=== PATIENT | female | born 1985 | race Caucasian/White ===

== ENCOUNTER 2016-10-17 07:39 | Emergency (ER) | payer MEDICAID ==
[~2016-10-17] VITALS: Ht 157.5 cm; Wt 67.0 kg
[~2016-10-17 07:39] MED LIST: ALBU8I INH; IBUP600 PO; LEVO.05 PO; OXYC1SOL5 PO
[2016-10-17 07:41] VITALS: BP 134/93; PULSE 76; RESP 15; TEMP 98.5; O2SAT 99
[2016-10-17] MEDS ORDERED: LEVO75TA3 PO (07:59)
[2016-10-17] MEDS ORDERED: RANI150T PO (07:59)
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
[2016-10-17] MEDS ORDERED: ACETAMINOPHEN/HYDROcodone 325 MG/5 MG TAB PO ONE (08:45)
[2016-10-17] MEDS ORDERED: IBUPROFEN 600 MG TAB PO ONE (08:45)
[2016-10-17] MEDS ORDERED: CYCLOBENZAPRINE HCL 10 MG TAB PO ONE (08:45)
--- NOTE | 2016-10-17 09:31 | RADRPT ---
EXAM DATE/TIME: 10/17/2016 09:17 [facility] COMPARISON: FOOT RIGHT COMPLETE ([id number]), October 17, 2016, 9:14. INDICATIONS : Neck pain from strain at work yesterday. MEDICAL HISTORY : None. SURGICAL HISTORY : None. ENCOUNTER: Initial ACUITY: 1 day PAIN SCORE: 9/10 LOCATION: Cervical spine. FINDINGS: Five view examination was performed. There is normal alignment and curvature of the vertebral bodies down to the level of C7. No evidence of fracture or subluxation. Vertebral body height is normal. The disc spaces are maintained. The prevertebral soft tissues are of normal thickness. The atlanto -axial articulation is intact. The bony neural foramen are patent bilaterally. CONCLUSION: 1. No acute bony abnormality identified. Canelo Chowdhury MD on October 17, 2016 at 9:27 Board Certified Radiologist. This report was verified electronically.
--- NOTE | 2016-10-17 09:32 | RADRPT ---
EXAM DATE/TIME: 10/17/2016 09:14 [facility] COMPARISON: No previous studies available for comparison. INDICATIONS : Right foot pain; fall at work yesterday. MEDICAL HISTORY : None. SURGICAL HISTORY : None. ENCOUNTER: Initial ACUITY: 1 day PAIN SCORE: 9/10 LOCATION: Right foot. FINDINGS: There is mild bunion deformity of the metatarsal phalangeal joint of the first digit. There are mild associated arthritic changes. The osseous structures are otherwise intact. No acute fracture is seen. CONCLUSION: Mild bunion deformity and secondary degenerative changes. No acute fracture is identified. Canelo Chowdhury MD on October 17, 2016 at 9:29 Board Certified Radiologist. This report was verified electronically.
[2016-10-17] MEDS ORDERED: IBUP-232 PO (09:54)
[2016-10-17] MEDS ORDERED: CYCL5TAB PO (09:59)
== END 2016-10-17 10:14 | disposition home or self-care (01) ==
LOC: NEPE 07:39
DX: S16.1XXA Strain of muscle, fascia and tendon at neck level, initial encounter (principal); S90.31XA Contusion of right foot, initial encounter; X58.XXXA Exposure to other specified factors, initial encounter; Y93.39 Activity, other involving climbing, rappelling and jumping off
CPT/HCPCS: 72050; 73630; 99284; L3260